=== PATIENT | male | born 1940 | race Two or more races ===

== ENCOUNTER 2021-01-11 22:34 | Inpatient (IN) | payer OTHER, MEDICARE ==
[~2021-01-11] VITALS: Ht 167.6 cm; Wt 99.8 kg
--- NOTE | 2021-01-11 23:00 | NUR ---
Pt son arrived and is at the bedside. Per son's translation pt stated he was suppose to take 20 units of Lantus insulin but he grabbed the wrong bottle (Humalog Insulin) instead and injected himself. Pt denies any medical complaints but is anxious about his blood sugar.
[2021-01-11 23:24] LABS: BASOPHILS % (AUTO) 0.3 % (0.0-2.0); EOSINOPHILS # (AUTO) 0.3 K/uL (0.0-0.7); EOSINOPHILS % (AUTO) 6.2 % (0.0-7.0); HEMATOCRIT 23.3 % (36.7-47.1); HEMOGLOBIN 7.7 g/dL (12.5-16.3); LYMPHOCYTES # (AUTO) 1.1 K/uL (20.0-40.0); LYMPHOCYTES % (AUTO) 24.1 % (20.5-51.5); MEAN CORPUSCULAR HEMOGLOBIN 31.4 uug (23.8-33.4); MEAN CORPUSCULAR HGB CONC 33 g/dL (32.5-36.3); MEAN CORPUSCULAR VOLUME 95.2 fL (73.0-96.2); MONOCYTES # (AUTO) 0.4 K/uL (2.0-10.0); MONOCYTES % (AUTO) 8.6 % (0.0-11.0); NEUTROPHILS # (AUTO) 2.9 K/uL (1.8-8.9); NEUTROPHILS % (AUTO) 60.8 % (38.5-71.5); PLATELET COUNT (AUTO) 171 K/uL (152-348); WHITE BLOOD COUNT (AUTO) 4.7 K/uL (3.6-10.2)
[2021-01-11 23:26] LABS: RED BLOOD CELL COUNT(AUTO) 2.44 MIL/uL (4.06-5.63)
[2021-01-11 23:34] LABS: ALANINE AMINOTRANSFERASE 13 U/L (16-63); ALKALINE PHOSPHATASE 117 U/L (50-136); ASPARTATE AMINOTRANSFERASE 14 U/L (15-37); BILIRUBIN,DIRECT 0.1 mg/dL (0.0-0.2); BILIRUBIN,TOTAL 0.3 mg/dL (0.2-1.0); CARBON DIOXIDE 23 mmol/L (21-32); CHLORIDE 106 mmol/L (98-107); CREATININE 2.5 mg/dL (0.6-1.3); GLUCOSE 139 mg/dL (74-106); POTASSIUM 4.2 mmol/L (3.5-5.1); TOTAL PROTEIN, SERUM 5.9 g/dL (6.4-8.2); UREA NITROGEN, BLOOD 27 mg/dL (7-18)
[2021-01-12] VITALS (8 sets, daily range): BP systolic 128–185; BP diastolic 60–108
[2021-01-12 00:03] LABS: *BILIRUBIN,URIN NEGATIVE (NEGATIVE); *BLOOD, URINE 2+ (NEGATIVE); *CLARITY,URINE CLEAR (CLEAR); *COLOR,URINE YELLOW (YELLOW); *KETONES,URINE NEGATIVE (NEGATIVE); *UROBILINOGEN,URINE 0.2 E.U./dl (NORMAL); LEUKOCYTE ESTERASE ,URINE 1+ (NEGATIVE); NITRITE, URINE NEGATIVE (NEGATIVE); PH,URINE 5.5 (5.0-8.0); UGLUCOSE NEGATIVE (NEGATIVE)
[2021-01-12 00:40] LABS: BACTERIA,URINE MODERATE /HPF (NONE SEEN); MUCUS,URINE FEW /LPF (0-FEW); SQUAMOUS EPITHELIAL CELL,UR FEW /HPF (NONE SEEN); URINE AMORPHOUS URATE FEW /HPF; WBC,URINE 80-100 /HPF (0-3)
--- NOTE | 2021-01-12 01:00 | NUR ---
Pt sleeping with NAD noted.
[2021-01-12] MEDS ORDERED: IV D5/ 0.9% NACL 1,000 ML IV ONE (02:00)
[2021-01-12] MEDS ORDERED: CEFTRIAXONE 1 G in IV DEXTROSE 5% 50 ML IV ONE (02:00)
[2021-01-12] MEDS ORDERED: CEFTRIAXONE /D5W 50ML IVPB **ER PYXIS IV ONE (02:04)
--- NOTE | 2021-01-12 02:20 | NUR ---
Pt's son stated he will get a list of pt's home medications from home later.
--- NOTE | 2021-01-12 02:50 | NUR ---
D5NS IVF infusion increased to 150 ml/hr as per verbal order.
--- NOTE | 2021-01-12 02:50 | NUR ---
Pt's Accu-chek=56, pt given D50% 25ML IVP as ordered by .
[2021-01-12] MEDS ORDERED: DEXTROSE 50% 50 ML DISP.SYRIN ONE (02:54)
[2021-01-12] MEDS ORDERED: DEXTROSE 50% 50 ML DISP.SYRIN IV ONE ×2 (03:00→07:00)
--- NOTE | 2021-01-12 03:00 | NUR ---
Called [facility] to page Dr. Jon Mcdaniel.
--- NOTE | 2021-01-12 03:30 | NUR ---
Dr. Chen on panel call with Dr. Jon Mcdaniel.
--- NOTE | 2021-01-12 03:30 | NUR ---
Cliff villegas in ED - 01/12/21 at 0339 by SAIRA spoke with via telephone and pt has been accepted for tele admission. Plan of care was discussed with pt and his son.
--- NOTE | 2021-01-12 03:30 | NUR ---
spoke with via telephone and pt has been accepted for [facility] admission. Plan of care was discussed with pt and his son.
--- NOTE | 2021-01-12 04:18 | NUR ---
SBAR report given to ANGELITO Arguelles in CCU. Pt resting with NAD noted.
--- NOTE | 2021-01-12 04:30 | NUR ---
Adm to CCU as [facility] overflow. A&O X 3.
[2021-01-12] MEDS ORDERED: LANTUS INSULIN (04:33)
[2021-01-12] MEDS ORDERED: HUMALOG INSULIN (04:33)
--- NOTE | 2021-01-12 04:40 | NUR ---
Pt trans to CCU 5 ([facility] status), NAD noted upon transfer.
--- NOTE | 2021-01-12 05:30 | NUR ---
Dr Mcdaniel aware glucose 61.
[2021-01-12 05:33] LABS: BASOPHILS % (AUTO) 0.2 % (0.0-2.0); EOSINOPHILS # (AUTO) 0.2 K/uL (0.0-0.7); EOSINOPHILS % (AUTO) 4.4 % (0.0-7.0); HEMATOCRIT 24.7 % (36.7-47.1); HEMOGLOBIN 8.2 g/dL (12.5-16.3); LYMPHOCYTES # (AUTO) 1.2 K/uL (20.0-40.0); LYMPHOCYTES % (AUTO) 21.4 % (20.5-51.5); MEAN CORPUSCULAR HEMOGLOBIN 31.2 uug (23.8-33.4); MEAN CORPUSCULAR HGB CONC 33 g/dL (32.5-36.3); MEAN CORPUSCULAR VOLUME 93.8 fL (73.0-96.2); MONOCYTES # (AUTO) 0.5 K/uL (2.0-10.0); MONOCYTES % (AUTO) 9.9 % (0.0-11.0); NEUTROPHILS # (AUTO) 3.5 K/uL (1.8-8.9); NEUTROPHILS % (AUTO) 64.1 % (38.5-71.5); PLATELET COUNT (AUTO) 176 K/uL (152-348); RED BLOOD CELL COUNT(AUTO) 2.63 MIL/uL (4.06-5.63); WHITE BLOOD COUNT (AUTO) 5.4 K/uL (3.6-10.2)
[2021-01-12 05:42] LABS: CARBON DIOXIDE 24 mmol/L (21-32); CHLORIDE 108 mmol/L (98-107); CREATININE 2.4 mg/dL (0.6-1.3); GLUCOSE 72 mg/dL (74-106); MAGNESIUM 1.7 mg/dL (1.8-2.4); PHOSPHOROUS 3.9 mg/dL (2.5-4.9); POTASSIUM 4.3 mmol/L (3.5-5.1); UREA NITROGEN, BLOOD 26 mg/dL (7-18)
[2021-01-12] MEDS ORDERED: ACETAMINOPHEN 325 MG TABLET PO PRN (06:45)
[2021-01-12] MEDS ORDERED: MORPHINE SULFATE 2 MG/1 ML DISP.SYRIN IV PRN (06:45)
[2021-01-12] MEDS ORDERED: ONDANSETRON 4 MG/2 ML VIAL IV PRN (06:45)
[2021-01-12] MEDS ORDERED: IV D5W 1000ML 1,000 ML IV PRN (06:45)
[2021-01-12] MEDS: PANTOPRAZOLE SODIUM 40 MG TABLET.DR PO SCH (07:19)
--- NOTE | 2021-01-12 08:16 | NUR ---
0800 blood glucose check: 149. Patient awake, alert, oriented and eating breakfast at this time. Addendum: 01/12/21 at 0818 by REMINGTON WEI RN Will continue blood glucose check Q2h and monitor patient
[2021-01-12 09:11] LABS: THYROID STIMULATING HORMONE 0.845 mIU/mL (0.358-3.740)
[2021-01-12] MEDS ORDERED: MAGNESIUM SULFATE/D5W 100 ML IV SCH (09:30)
--- NOTE | 2021-01-12 10:11 | NUR ---
1000 blood glucose check: 159
--- NOTE | 2021-01-12 12:09 | NUR ---
1200 blood glucose check: 150
[2021-01-12] MEDS ORDERED: BISACODYL 10 MG SUPP.RECT RC ONE (14:30)
--- NOTE | 2021-01-12 14:30 | NUR ---
Patient now under med-surg status in stable condition.
[2021-01-12] MEDS ORDERED: DEXTROSE 50% 50 ML DISP.SYRIN IV PRN (14:45)
[2021-01-12 14:59] LABS: *BILIRUBIN,URIN NEGATIVE (NEGATIVE); *COLOR,URINE YELLOW (YELLOW); *KETONES,URINE NEGATIVE (NEGATIVE); *UROBILINOGEN,URINE 0.2 E.U./dl (NORMAL); LEUKOCYTE ESTERASE ,URINE 1+ (NEGATIVE); NITRITE, URINE NEGATIVE (NEGATIVE); UGLUCOSE NEGATIVE (NEGATIVE)
[2021-01-12 15:01] LABS: *BLOOD, URINE TRACE (NEGATIVE)
[2021-01-12] MEDS: SOD FERRIC GLUC COMPLX/SUCROSE 125 MG in IV NORMAL SALINE 100 ML IV SCH (15:02)
--- NOTE | 2021-01-12 15:03 | NUR ---
Picked up by photo tech for CT Abdomen.
[2021-01-12 15:05] LABS: *CREATININE,URINE 69.5 mg/dL (30-125); *URINE TOTAL PROTEIN RANDOM 20.4 mg/dL (<150/24HR)
[2021-01-12 15:13] LABS: *CLARITY,URINE HAZY (CLEAR); BACTERIA,URINE FEW /HPF (NONE SEEN); SQUAMOUS EPITHELIAL CELL,UR FEW /HPF (NONE SEEN); WBC,URINE 20-50 /HPF (0-3)
[2021-01-12] MEDS ORDERED: LACT10SO3 PO (15:35)
[2021-01-12] MEDS ORDERED: ATOR80TA PO (15:35)
[2021-01-12] MEDS ORDERED: TAMS-3 PO (15:35)
[2021-01-12] MEDS ORDERED: INSU3INS9 SQ (15:35)
[2021-01-12] MEDS ORDERED: ASPI81TA31 PO (15:35)
[2021-01-12] MEDS ORDERED: DORZ10DR11 EACHEYE (15:35)
[2021-01-12] MEDS ORDERED: LACT1CAP69 PO (15:35)
[2021-01-12] MEDS ORDERED: CLOP75TA15 PO (15:35)
[2021-01-12] MEDS ORDERED: TRAZ-182 PO (15:35)
[2021-01-12] MEDS ORDERED: GABA-532 PO (15:35)
[2021-01-12] MEDS ORDERED: METO-358 PO (15:35)
[2021-01-12] MEDS ORDERED: LATA2.5D15 OP (15:35)
[2021-01-12] MEDS ORDERED: SENN-18 PO (15:35)
[2021-01-12] MEDS ORDERED: TIMO1DRO5 OP (15:35)
[2021-01-12] MEDS ORDERED: FLUT10.62 IH (15:35)
[2021-01-12] MEDS ORDERED: ALBU18HF2 IH (15:35)
[2021-01-12] MEDS ORDERED: ALBUTEROL SULFATE 2.5 MG/3 ML NEBU NEB PRN (15:45)
[2021-01-12] MEDS ORDERED: ALBUTEROL SULFATE 8 GM HFA.AER.AD IH PRN (15:45)
--- NOTE | 2021-01-12 15:45 | NUR ---
Patient returned to room. CT machine broke and tech will be back later after its been fixed for his CT scan.
[2021-01-12] MEDS ORDERED: METO100T14 PO (16:05)
[2021-01-12] MEDS: ASPIRIN 81 MG TAB.CHEW PO SCH (16:11)
[2021-01-12] MEDS: CLOPIDOGREL 75 MG TABLET PO SCH (16:11)
[2021-01-12] MEDS: BLOOD SUGAR DIAGNOSTIC 1 EACH STRIP VI SCH ×2 (16:21→20:26)
[2021-01-12] MEDS: INSULIN REGULAR, HUMAN 300 UNIT/3 ML VIAL SQ PRN ×2 (16:45→20:25)
[2021-01-12] MEDS: GABAPENTIN 300 MG CAPSULE PO SCH (16:45)
[2021-01-12] MEDS ORDERED: TIMOLOL MALEATE 0.5% OP SCH (17:00)
[2021-01-12] MEDS ORDERED: GABAPENTIN 100 MG CAPSULE PO SCH (17:00)
[2021-01-12] MEDS: LACTULOSE 20 G/30 ML LIQUID UDC PO PRN (17:10)
--- NOTE | 2021-01-12 17:47 | NUR ---
Patient complaining of abdominal pain and no appetite. Deferred insulin dose before dinner as patient does not want to eat at this time. Notified PHP MYSQL WEB DEVELOPER. Insulin wasted at proper receptacle.
[2021-01-12] MEDS: DORZOLAMIDE/TIMOLOL OPHT DROP 10 ML BOTTLE EACHEYE SCH (18:26)
[2021-01-12] MEDS: LATANOPROST OPHT DROP 2.5 ML BOTTLE EACHEYE SCH (19:56)
[2021-01-12] MEDS ORDERED: IV NORMAL SALINE 250 ML IV PRN (19:59)
[2021-01-12] MEDS: TAMSULOSIN HCL 0.4 MG CAP.SR.24H PO SCH (20:04)
[2021-01-12] MEDS: DOCUSATE SODIUM 100 MG CAPSULE PO SCH (20:04)
[2021-01-12] MEDS: TRAZODONE 50 MG TABLET PO SCH (20:05)
[2021-01-12] MEDS: METOPROLOL TARTRATE 50 MG TABLET PO SCH (20:06)
[2021-01-12] MEDS: ATORVASTATIN 40 MG TABLET PO SCH (20:06)
[2021-01-12] MEDS ORDERED: DOCUSATE SODIUM 250 MG CAPSULE PO SCH (21:00)
[2021-01-12] MEDS ORDERED: Medication Not On Formulary EA (Atorvastatin Calcium (Lipitor) 80 MG) PO SCH (21:00)
--- NOTE | 2021-01-12 21:45 | NUR ---
Reported to STUART Vasquez of abd CT results showing bladder distention. Also, reported that Dr. Rader only wanted hobson / bladder retention; due to UTI. Order / hobson received.
--- NOTE | 2021-01-12 23:00 | NUR ---
Berg inserted; then, prophylactically, clamped after 500 cc. Total u/o 1600 cc. Patient moved to 316 via bed. Report to ANGELITO Campos.
--- NOTE | 2021-01-12 23:15 | NUR ---
Patient moved to 316 from CCU. Alert x4. No s/s of distress noted.No c/ pain at this time.On RA.Iv on left AC 20g patent and intact.Berg catheter in place draining well with yellow urine output.BM x1. Call light with in reach.
[2021-01-13 01:00] VITALS: BP 98/68
[2021-01-13] MEDS: CEFTRIAXONE 2 G in IV DEXTROSE 5% 100 ML IV SCH (01:28)
[2021-01-13] MEDS ORDERED: CEFTRIAXONE 1 G in IV DEXTROSE 5% 50 ML IV SCH (02:00)
[2021-01-13 04:30] VITALS: BP 125/60
[2021-01-13] MEDS: PANTOPRAZOLE SODIUM 40 MG TABLET.DR PO SCH (06:07)
[2021-01-13] MEDS: BLOOD SUGAR DIAGNOSTIC 1 EACH STRIP VI SCH ×5 (06:35→20:30)
--- NOTE | 2021-01-13 07:30 | NUR ---
Received resting but easily arousable. Not in acute distress. Denies pain. Iv on LAC intact and patent. Berg catheter intact and patent draining yellow urine. Safety maintained. Kept comfortable. Continue to monitor.
[2021-01-13 08:15] VITALS: BP 153/69
[2021-01-13] MEDS: INSULIN REGULAR, HUMAN 300 UNIT/3 ML VIAL SQ PRN ×3 (08:22→17:21)
[2021-01-13] MEDS: ASPIRIN 81 MG TAB.CHEW PO SCH (08:27)
[2021-01-13] MEDS: DORZOLAMIDE/TIMOLOL OPHT DROP 10 ML BOTTLE EACHEYE SCH ×2 (08:27→17:00)
[2021-01-13] MEDS: CLOPIDOGREL 75 MG TABLET PO SCH (08:27)
[2021-01-13] MEDS: METOPROLOL TARTRATE 50 MG TABLET PO SCH ×2 (08:27→20:19)
[2021-01-13] MEDS: GABAPENTIN 300 MG CAPSULE PO SCH ×2 (08:27→17:00)
[2021-01-13 11:33] VITALS: BP 122/59
[2021-01-13] MEDS: IV 1/2NS 1000 ML 1,000 ML IV SCH (13:42)
[2021-01-13] MEDS: SOD FERRIC GLUC COMPLX/SUCROSE 125 MG in IV NORMAL SALINE 100 ML IV SCH (13:58)
[2021-01-13] MEDS: LACTULOSE 20 G/30 ML LIQUID UDC PO PRN (14:02)
[2021-01-13 14:55] LABS: BASOPHILS % (AUTO) 0.3 % (0.0-2.0); EOSINOPHILS # (AUTO) 0.3 K/uL (0.0-0.7); HEMATOCRIT 29.5 % (36.7-47.1); HEMOGLOBIN 9.9 g/dL (12.5-16.3); LYMPHOCYTES # (AUTO) 1.1 K/uL (20.0-40.0); LYMPHOCYTES % (AUTO) 21.1 % (20.5-51.5); MEAN CORPUSCULAR HEMOGLOBIN 31.3 uug (23.8-33.4); MEAN CORPUSCULAR HGB CONC 33 g/dL (32.5-36.3); MEAN CORPUSCULAR VOLUME 93.9 fL (73.0-96.2); MONOCYTES # (AUTO) 0.3 K/uL (2.0-10.0); MONOCYTES % (AUTO) 6.7 % (0.0-11.0); NEUTROPHILS # (AUTO) 3.4 K/uL (1.8-8.9); NEUTROPHILS % (AUTO) 66.9 % (38.5-71.5); PLATELET COUNT (AUTO) 201 K/uL (152-348); RED BLOOD CELL COUNT(AUTO) 3.15 MIL/uL (4.06-5.63); WHITE BLOOD COUNT (AUTO) 5.1 K/uL (3.6-10.2)
[2021-01-13 15:20] LABS: ALANINE AMINOTRANSFERASE 14 U/L (16-63); ALKALINE PHOSPHATASE 126 U/L (50-136); ASPARTATE AMINOTRANSFERASE 12 U/L (15-37); BILIRUBIN,TOTAL 0.3 mg/dL (0.2-1.0); CARBON DIOXIDE 25 mmol/L (21-32); CHLORIDE 107 mmol/L (98-107); CREATINE KINASE, TOTAL 47 U/L (39-308); CREATININE 2.3 mg/dL (0.6-1.3); GLUCOSE 175 mg/dL (74-106); POTASSIUM 5.6 mmol/L (3.5-5.1); TOTAL PROTEIN, SERUM 6.2 g/dL (6.4-8.2); UREA NITROGEN, BLOOD 24 mg/dL (7-18)
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
[2021-01-13 16:00] VITALS: BP 149/63
--- NOTE | 2021-01-13 18:52 | NUR ---
Alert, oriented and able to make needs known. Denies pain. In no acute distress. No s/sx of hypo/hyperglycemia noted. Berg catheter intact and patent. Iv hydration ongoing and tolerated. Safety maintained. Kept comfortable. Needs attended.
--- NOTE | 2021-01-13 19:55 | NUR ---
PATIENT ALERT ORIENTED, NO SOB NO CHEST PAIN, NO COMPLAIN OF PAIN. PATIENT RAMIREZ CATH PATENT, DRAINING WITH YELLOW COLOR URINE IN MODERATE AMOUNT, NO S/S OF HYPOGLYCEMIA NOTED, CONT TO MONITOR.
[2021-01-13 20:00] VITALS: BP 141/70
[2021-01-13] MEDS: DOCUSATE SODIUM 100 MG CAPSULE PO SCH (20:20)
[2021-01-13] MEDS: ATORVASTATIN 40 MG TABLET PO SCH (20:20)
[2021-01-13] MEDS: TAMSULOSIN HCL 0.4 MG CAP.SR.24H PO SCH (20:20)
[2021-01-13] MEDS: TRAZODONE 50 MG TABLET PO SCH (20:22)
[2021-01-13] MEDS: LATANOPROST OPHT DROP 2.5 ML BOTTLE EACHEYE SCH (20:23)
--- NOTE | 2021-01-13 20:35 | NUR ---
Patient refused regular insulin coverage for 180 blood sugar.
[2021-01-14] MEDS: IV 1/2NS 1000 ML 1,000 ML IV SCH ×2 (01:18→12:23)
[2021-01-14] MEDS: CEFTRIAXONE 2 G in IV DEXTROSE 5% 100 ML IV SCH (03:49)
[2021-01-14 04:00] VITALS: BP 139/64
[2021-01-14] MEDS: PANTOPRAZOLE SODIUM 40 MG TABLET.DR PO SCH (06:29)
[2021-01-14] MEDS: BLOOD SUGAR DIAGNOSTIC 1 EACH STRIP VI SCH ×2 (06:33→11:45)
[2021-01-14 06:34] LABS: BASOPHILS % (AUTO) 0.2 % (0.0-2.0); EOSINOPHILS # (AUTO) 0.2 K/uL (0.0-0.7); EOSINOPHILS % (AUTO) 4.9 % (0.0-7.0); HEMATOCRIT 28.7 % (36.7-47.1); HEMOGLOBIN 9.8 g/dL (12.5-16.3); LYMPHOCYTES # (AUTO) 1.1 K/uL (20.0-40.0); LYMPHOCYTES % (AUTO) 23.7 % (20.5-51.5); MEAN CORPUSCULAR HEMOGLOBIN 31.6 uug (23.8-33.4); MEAN CORPUSCULAR HGB CONC 34 g/dL (32.5-36.3); MEAN CORPUSCULAR VOLUME 93.1 fL (73.0-96.2); MONOCYTES # (AUTO) 0.4 K/uL (2.0-10.0); MONOCYTES % (AUTO) 7.4 % (0.0-11.0); NEUTROPHILS # (AUTO) 3.1 K/uL (1.8-8.9); NEUTROPHILS % (AUTO) 63.8 % (38.5-71.5); PLATELET COUNT (AUTO) 191 K/uL (152-348); RED BLOOD CELL COUNT(AUTO) 3.09 MIL/uL (4.06-5.63); WHITE BLOOD COUNT (AUTO) 4.8 K/uL (3.6-10.2)
[2021-01-14 06:39] LABS: CARBON DIOXIDE 23 mmol/L (21-32); CHLORIDE 107 mmol/L (98-107); CREATININE 1.7 mg/dL (0.6-1.3); GLUCOSE 193 mg/dL (74-106); MAGNESIUM 1.5 mg/dL (1.8-2.4); POTASSIUM 4.1 mmol/L (3.5-5.1); UREA NITROGEN, BLOOD 20 mg/dL (7-18)
[2021-01-14 07:34] VITALS: BP 153/69
[2021-01-14] MEDS: MAGNESIUM SULFATE/D5W 100 ML IV SCH ×2 (07:59→09:15)
[2021-01-14] MEDS: DORZOLAMIDE/TIMOLOL OPHT DROP 10 ML BOTTLE EACHEYE SCH (09:15)
[2021-01-14] MEDS: ASPIRIN 81 MG TAB.CHEW PO SCH (09:15)
[2021-01-14] MEDS: METOPROLOL TARTRATE 50 MG TABLET PO SCH (09:16)
[2021-01-14] MEDS: GABAPENTIN 300 MG CAPSULE PO SCH ×2 (09:17→12:19)
[2021-01-14] MEDS: CLOPIDOGREL 75 MG TABLET PO SCH (09:17)
[2021-01-14] MEDS ORDERED: CEPH500C2 PO (10:42)
--- NOTE | 2021-01-14 11:20 | NUR ---
Left message for son on chart for assistance with transportation home. Manny Saleh RN
--- NOTE | 2021-01-14 11:42 | NUR ---
SON REQUESTS TAILOR GARMENT FITTER TO CALL [phone], [facility], BECAUSE THE PATIENT NEEDS A STAIR CHAIR UP [address] AND THEY RECENTLY TRANSPORTED HIM FROM [place] TO THE RESIDENCE HE LIVES IN NOW. SAYS IT IS BILLABLE TO MEDICARE OR MEDICAL. WILL MEET THE TRANSPORT TEAM AT HOME HE HAS TO REQUEST OFF FROM WORK TO GET THERE WHEN HIS FATHER COMES HOME TODAY. SARAH NELSON RN
[2021-01-14 12:00] VITALS: BP 154/63
[2021-01-14] MEDS: INSULIN REGULAR, HUMAN 300 UNIT/3 ML VIAL SQ PRN (12:02)
[2021-01-14 16:00] VITALS: BP 156/72
--- NOTE | 2021-01-14 16:36 | NUR ---
Patient bladder scan 0 ml x3 and 1 ml x1. Patient to discharge to home per Attending. Patient given a copy of all records and prescription. Home health company aware of discharge plan. Patient will follow up as directed. Manny Saleh RN
[2021-01-15 15:32] LABS: M-SPIKE Not Observed
[2021-01-15 15:33] LABS: ALBUMIN 2.4 LOW; ALPHA-1-GLOBULIN 0.3; ALPHA-2-GLOBULIN 1.1 LOW; BETA GLOBULIN 0.7
[2021-01-15 15:34] LABS: A/G RATIO 0.8; GAMMA GLOBULIN 0.9; GLOBULIN, TOTAL 3.1
== END 2021-01-14 16:45 | disposition home health service (06) | DRG 812 ==
LOC: ER 22:36 → CCU 01-12 04:43 → MEDSURG3 01-12 23:15
PROVIDERS: ADMIT Nurse Practitioner Family; ATTEND Nurse Practitioner Acute Care
DX: T38.3X1A Poisoning by insulin and oral hypoglycemic [antidiabetic] drugs, accidental (unintentional), initial encounter (principal); N17.0 Acute kidney failure with tubular necrosis; G93.41 Metabolic encephalopathy; E44.0 Moderate protein-calorie malnutrition; E88.09 Other disorders of plasma-protein metabolism, not elsewhere classified; N13.6 Pyonephrosis; E11.21 Type 2 diabetes mellitus with diabetic nephropathy; E11.649 Type 2 diabetes mellitus with hypoglycemia without coma; E11.22 Type 2 diabetes mellitus with diabetic chronic kidney disease; D64.9 Anemia, unspecified; Z79.4 Long term (current) use of insulin; I12.9 Hypertensive chronic kidney disease with stage 1 through stage 4 chronic kidney disease, or unspecified chronic kidney disease; N18.9 Chronic kidney disease, unspecified; Y92.009 Unspecified place in unspecified non-institutional (private) residence as the place of occurrence of the external cause; R33.9 Retention of urine, unspecified; I25.10 Atherosclerotic heart disease of native coronary artery without angina pectoris; Z20.822 Contact with and (suspected) exposure to COVID-19; Z95.5 Presence of coronary angioplasty implant and graft; N40.1 Benign prostatic hyperplasia with lower urinary tract symptoms
CPT/HCPCS: 36415; 70030-TC; 76770; 83550; 83735; 83970; 84100; 84153; 84155; 84156; 84165; 84300; 84443; 85025; 87086; 93005; A4663; G0378; J0696; J1815; J2270; J2916; J3475; J3490; J7030; J7042; J7050; J7060; J7070